=== PATIENT | male | born 1940 | race Caucasian/White ===

== ENCOUNTER 2018-04-03 08:55 | Day surgery (SDC) | payer MEDICARE, OTHER ==
[~2018-04-03] VITALS: Ht 180.3 cm; Wt 110.4 kg
[~2018-04-03 08:55] MED LIST: ALBU90OI INH; AZIT250 PO; CYAN1000I IM; FERR325 PO; HYDHOMSY PO; LEVSOD125 PO; MONT10T PO; MULVITMINF PO; OMEP20ER PO; TELM20 PO
[2018-04-03] MEDS ORDERED: ATOR10 (10:13)
== END 2018-04-03 11:30 | disposition home or self-care (01) ==
LOC: ORSCSDS 08:55
PROVIDERS: Surgery
PROC: 0DBK8ZX Excision of Ascending Colon, Via Natural or Artificial Opening Endoscopic, Diagnostic (ICD-10-PCS; principal; 2018-04-03 10:30)
PROC: 0DBH8ZX Excision of Cecum, Via Natural or Artificial Opening Endoscopic, Diagnostic (ICD-10-PCS; principal; 2018-04-03 10:30)
DX: Z12.11 Encounter for screening for malignant neoplasm of colon (principal); D12.2 Benign neoplasm of ascending colon; D12.0 Benign neoplasm of cecum; Z86.010 Personal history of colon polyps; I10 Essential (primary) hypertension; I25.10 Atherosclerotic heart disease of native coronary artery without angina pectoris; E03.9 Hypothyroidism, unspecified; E78.5 Hyperlipidemia, unspecified; Z87.891 Personal history of nicotine dependence; Z79.899 Other long term (current) drug therapy
CPT/HCPCS: 88305; J7120

== ENCOUNTER → 2019-11-30 | Outpatient (CLI) | payer MEDICARE, OTHER ==
[~2019-11-30] MED LIST changes: +ATOR10
== END | disposition home or self-care (01) ==
LOC: PLD 08:32 → LAB SHORT 08:32
DX: L57.0 Actinic keratosis (principal)
CPT/HCPCS: 88305